=== PATIENT | female | born 1990 | race Caucasian/White ===

== ENCOUNTER 2017-02-12 11:11 | Emergency (ER) | payer MEDICAID ==
[~2017-02-12] VITALS: Ht 154.9 cm; Wt 69.9 kg
[2017-02-12 11:15] VITALS: BP_SYST 112
--- NOTE | 2017-02-12 11:15 | NUR ---
Ambulatory to bed 5
--- NOTE | 2017-02-12 11:16 | NUR ---
Pt complains of left breast pain since last night and today. Pt states has a 1month old and is . Pt reported she went to her OB doctor and was instructed to put warm compresses to help. Pt states did not help and is in pain. No noted redness to left breast. Upon palpation, tenderness to the top portion of breast. Pt denies N/V, fever, or diarrhea. No other injuries/complaints per patient or noted.
--- NOTE | 2017-02-12 11:20 | NUR ---
ER Dr. Rodriguez at bedside examining patient.
--- NOTE | 2017-02-12 11:56 | NUR ---
Patient given written and verbal discharge instructions and verbalizes understanding. ER MD brooks discussed with patient the results and treatment provided. Patient in stable condition. ID arm band removed. Rx of keflex, tylenol given. Patient educated on pain management and to follow up with PMD. Pain Scale 1. Dr Brooks aware. Opportunity for questions provided and answered.
[2017-02-12 12:53] VITALS: BP_SYST 115
== END 2017-02-12 12:53 | disposition home or self-care (01) ==
LOC: SED 11:11
DX: O91.22 Nonpurulent mastitis associated with the puerperium (principal)
CPT/HCPCS: 99283

== ENCOUNTER 2017-03-11 17:27 | Emergency (ER) | payer MEDICAID ==
[~2017-03-11] VITALS: Ht 154.9 cm; Wt 69.4 kg
[2017-03-11 17:41] VITALS: BP_SYST 118
--- NOTE | 2017-03-11 18:15 | NUR ---
Pt placed in hallway for right earache since today, pt denies n/v or fever. Pt denies loss of hearing. Redness is noted in right ear. No other injuries/complaints per pt or noted.
--- NOTE | 2017-03-11 18:24 | NUR ---
ER at bedside examining patient.
[2017-03-11 18:32] VITALS: BP_SYST 115
--- NOTE | 2017-03-11 18:32 | NUR ---
Patient given written and verbal discharge instructions and verbalizes understanding. ER MD discussed with patient the results and treatment provided. Patient in stable condition. ID arm band removed. RX of motrin and augmentin given. Patient educated on pain management and to follow up with PMD. Pain Scale 0. Opportunity for questions provided and answered.
== END 2017-03-11 18:32 | disposition home or self-care (01) ==
LOC: SED 17:27
DX: H66.91 Otitis media, unspecified, right ear (principal)
CPT/HCPCS: 99283